=== PATIENT | male | born 1995 | race Caucasian/White ===

== ENCOUNTER 2018-12-25 16:31 | Emergency (ER) | payer SELFPAY | END 2018-12-25 16:55 | disposition home or self-care (01) | LOC: E/R 16:55 → FTE 16:31 | DX: S23.3XXA Sprain of ligaments of thoracic spine, initial encounter (principal); V49.49XA Driver injured in collision with other motor vehicles in traffic accident, initial encounter | CPT/HCPCS: 99283 ==